=== PATIENT | female | born 1950 | race Asian ===

== ENCOUNTER 2018-06-12 09:24 | Inpatient (IN) | payer MEDICARE ==
[~2018-06-12] VITALS: Ht 162.6 cm; Wt 52.5 kg
[2018-06-12 10:30] VITALS: BP 95/65
[2018-06-12] MEDS ORDERED: ACETAMINOPHEN 325 MG TABLET PO PRN (11:15)
[2018-06-12] MEDS ORDERED: DOCUSATE SODIUM 283 MG/5 ML MINI-ENEMA PR PRN (11:15)
[2018-06-12 11:58] VITALS: BP 95/65
[2018-06-12 15:48] VITALS: BP 117/75
[2018-06-12 20:30] LABS: APPEARANCE,URINE CLEAR (CLEAR); BILIRUBIN,URINE NEGATIVE (NEGATIVE); GLUCOSE, URINE (UA) NEGATIVE (NEGATIVE); KETONES,URINE 15 mg/dL (NEGATIVE); LEUKOCYTE ESTERASE ,URINE SMALL (NEGATIVE); NITRATE,URINE NEGATIVE (NEGATIVE); OCCULT BLOOD,URINE NEGATIVE (NEGATIVE); PROTEIN,URINE TRACE (NEGATIVE); UROBILINOGEN,URINE 0.2 mg/dL (<=1.0)
[2018-06-12] MEDS: SENNA 187 MG TABLET PO SCH (20:40)
[2018-06-12] MEDS: DOCUSATE SODIUM 100 MG CAPSULE PO SCH (20:40)
[2018-06-12 20:41] LABS: BACTERIA,URINE Few /HPF (None Seen)
[2018-06-12 20:42] LABS: SQUAMOUS EPITHELIAL CELL,UR Few /LPF (None Seen)
[2018-06-12 20:44] LABS: HYALINE CASTS, URINE 0-2 /LPF (None Seen); MUCUS,URINE Moderate LPF (None Seen)
[2018-06-13 03:55] VITALS: BP 108/71
[2018-06-13 06:27] LABS: BASOPHILS % (AUTO) 0.7 % (0.0-2.0); EOSINOPHILS % (AUTO) 0.8 % (1.0-6.0); HEMATOCRIT 37.8 % (36-46); HEMOGLOBIN 12.9 g/dL (12.0-16.0); LYMPHOCYTES # (AUTO) 1.1 K/uL (1.0-4.8); LYMPHOCYTES % (AUTO) 16.5 % (22.0-44.0); MEAN CORPUSCULAR HEMOGLOBIN 29.8 pg (26.0-34.0); MEAN CORPUSCULAR HGB CONC 34.1 G/dL (31.0-37.0); MEAN CORPUSCULAR VOLUME 88 fL (80-100); MONOCYTES # (AUTO) 0.8 K/uL (0.1-1.0); MONOCYTES % (AUTO) 12.4 % (2.0-9.0); NEUTROPHILS # (AUTO) 4.7 K/uL (1.8-7.7); NEUTROPHILS % (AUTO) 69.6 % (40.0-70.0); PLATELET COUNT (AUTO) 215 K/uL (150-450); RED BLOOD CELL COUNT(AUTO) 4.32 MIL/uL (4.00-5.20); RED CELL DISTRIBUTION WIDTH 13.5 % (11.5-14.5)
[2018-06-13 06:39] LABS: ANION GAP 7 mmol/L (8-16); CALCIUM, TOTAL 9.2 mg/dL (8.8-10.5); CARBON DIOXIDE 27 mmol/L (22-29); CHLORIDE 101 mmol/L (98-107); CREATININE 0.69 mg/dL (0.60-1.30); GLOMERULAR FILTR. RATE CALC > 60 mL/min (>60); GLUCOSE,RANDOM 126 mg/dL (70-110); POTASSIUM 3.8 mmol/L (3.5-5.1); SODIUM SERUM 135 mmol/L (136-145); UREA NITROGEN, BLOOD 21 mg/dL (7-18)
[2018-06-13 07:30] VITALS: BP 105/67
[2018-06-13] MEDS: ASPIRIN 81 MG CHEWABLE TABLET PO SCH ×2 (08:18→08:21)
[2018-06-13] MEDS: ASCORBIC ACID 500 MG TABLET PO SCH ×3 (08:18→20:41)
[2018-06-13] MEDS: DOCUSATE SODIUM 100 MG CAPSULE PO SCH ×3 (08:18→20:41)
[2018-06-13] MEDS: METOPROLOL TARTRATE 25 MG TABLET PO SCH ×2 (13:20→20:41)
[2018-06-13 15:51] VITALS: BP 100/71
[2018-06-13 17:34] LABS: GLUCOMETER DEV NAME(LOC) 2WR 2E; GLUCOSE,POINT OF CARE 99 MG/DL (70-110)
[2018-06-13 20:32] VITALS: BP 113/57
[2018-06-13] MEDS: SENNA 187 MG TABLET PO SCH (20:41)
[2018-06-14 05:30] VITALS: BP 93/57
[2018-06-14 06:04] LABS: GLUCOMETER DEV NAME(LOC) 2WR 1B; GLUCOSE,POINT OF CARE 103 MG/DL (70-110)
[2018-06-14 06:27] LABS: BASOPHILS % (AUTO) 0.8 % (0.0-2.0); EOSINOPHILS % (AUTO) 1.6 % (1.0-6.0); HEMATOCRIT 39.8 % (36-46); HEMOGLOBIN 13.6 g/dL (12.0-16.0); LYMPHOCYTES # (AUTO) 1.1 K/uL (1.0-4.8); LYMPHOCYTES % (AUTO) 21.3 % (22.0-44.0); MEAN CORPUSCULAR HEMOGLOBIN 29.8 pg (26.0-34.0); MEAN CORPUSCULAR HGB CONC 34.3 G/dL (31.0-37.0); MEAN CORPUSCULAR VOLUME 87 fL (80-100); MONOCYTES # (AUTO) 0.7 K/uL (0.1-1.0); MONOCYTES % (AUTO) 13.5 % (2.0-9.0); NEUTROPHILS # (AUTO) 3.2 K/uL (1.8-7.7); NEUTROPHILS % (AUTO) 62.8 % (40.0-70.0); PLATELET COUNT (AUTO) 213 K/uL (150-450); RED BLOOD CELL COUNT(AUTO) 4.58 MIL/uL (4.00-5.20); RED CELL DISTRIBUTION WIDTH 13.5 % (11.5-14.5)
[2018-06-14 07:50] VITALS: BP 103/69
[2018-06-14 08:18] LABS: ALANINE AMINOTRANSFERASE 29 U/L (12-78); ALKALINE PHOSPHATASE 63 U/L (46-116); ANION GAP 6 mmol/L (8-16); ASPARTATE AMINOTRANSFERASE 31 U/L (15-37); BILIRUBIN,TOTAL 0.7 mg/dL (0.1-1.0); CALCIUM, TOTAL 9.1 mg/dL (8.8-10.5); CARBON DIOXIDE 27 mmol/L (22-29); CHLORIDE 103 mmol/L (98-107); CREATININE 0.62 mg/dL (0.60-1.30); GLOMERULAR FILTR. RATE CALC > 60 mL/min (>60); GLUCOSE,RANDOM 108 mg/dL (70-110); POTASSIUM 3.9 mmol/L (3.5-5.1); SODIUM SERUM 136 mmol/L (136-145); THYROID STIMULATING HORMONE 1.36 uIU/mL (0.36-3.74); TOTAL PROTEIN, SERUM 7.5 g/dL (6.4-8.2); UREA NITROGEN, BLOOD 18 mg/dL (7-18)
[2018-06-14] MEDS: NATTOKINASE PO SCH (08:31)
[2018-06-14] MEDS: KRILL OIL 500 MG PO SCH (08:31)
[2018-06-14] MEDS: ASCORBIC ACID 500 MG TABLET PO SCH ×2 (08:32→20:50)
[2018-06-14] MEDS: DOCUSATE SODIUM 100 MG CAPSULE PO SCH ×2 (08:32→20:50)
[2018-06-14] MEDS: MAGNESIUM PO SCH (08:32)
[2018-06-14] MEDS: METOPROLOL TARTRATE 25 MG TABLET PO SCH (08:32)
[2018-06-14] MEDS: ASPIRIN 81 MG CHEWABLE TABLET PO SCH (08:33)
[2018-06-14] MEDS ORDERED: *PATIENT'S OWN MED [ENTER DRUG, DOSE, FREQUENCY IN COMMENTS] CLINICAL ONE ×3 (09:00)
[2018-06-14] MEDS: FAMOTIDINE 20 MG TABLET PO SCH (09:17)
[2018-06-14 16:09] VITALS: BP 111/59
[2018-06-14 17:18] LABS: GLUCOMETER DEV NAME(LOC) 2WR 1B; GLUCOSE,POINT OF CARE 135 MG/DL (70-110)
[2018-06-14] MEDS: SENNA 187 MG TABLET PO SCH (20:50)
[2018-06-14 20:55] VITALS: BP 112/71
[2018-06-15 04:24] VITALS: BP 125/71
[2018-06-15] MEDS ORDERED: KRIL1CAP19 PO (05:16)
[2018-06-15 07:00] VITALS: BP 96/61
[2018-06-15 07:04] LABS: BASOPHILS % (AUTO) 0.6 % (0.0-2.0); EOSINOPHILS % (AUTO) 1.6 % (1.0-6.0); HEMATOCRIT 34.1 % (36-46); HEMOGLOBIN 11.6 g/dL (12.0-16.0); LYMPHOCYTES # (AUTO) 0.8 K/uL (1.0-4.8); LYMPHOCYTES % (AUTO) 18.9 % (22.0-44.0); MEAN CORPUSCULAR HEMOGLOBIN 29.4 pg (26.0-34.0); MEAN CORPUSCULAR HGB CONC 34.2 G/dL (31.0-37.0); MEAN CORPUSCULAR VOLUME 86 fL (80-100); MONOCYTES # (AUTO) 0.6 K/uL (0.1-1.0); MONOCYTES % (AUTO) 12.9 % (2.0-9.0); NEUTROPHILS # (AUTO) 2.9 K/uL (1.8-7.7); PLATELET COUNT (AUTO) 208 K/uL (150-450); RED BLOOD CELL COUNT(AUTO) 3.96 MIL/uL (4.00-5.20); RED CELL DISTRIBUTION WIDTH 13.1 % (11.5-14.5)
[2018-06-15 07:40] LABS: ALANINE AMINOTRANSFERASE 23 U/L (12-78); ALBUMIN 2.7 g/dL (3.4-5.0); ALKALINE PHOSPHATASE 67 U/L (46-116); ANION GAP 7 mmol/L (8-16); ASPARTATE AMINOTRANSFERASE 25 U/L (15-37); BILIRUBIN,TOTAL 0.4 mg/dL (0.1-1.0); CALCIUM, TOTAL 8.5 mg/dL (8.8-10.5); CARBON DIOXIDE 27 mmol/L (22-29); CHLORIDE 104 mmol/L (98-107); CREATININE 0.49 mg/dL (0.60-1.30); GLOMERULAR FILTR. RATE CALC > 60 mL/min (>60); GLUCOSE,RANDOM 119 mg/dL (70-110); POTASSIUM 3.7 mmol/L (3.5-5.1); SODIUM SERUM 138 mmol/L (136-145); TOTAL PROTEIN, SERUM 6.5 g/dL (6.4-8.2); UREA NITROGEN, BLOOD 24 mg/dL (7-18)
[2018-06-15 07:54] LABS: GLUCOMETER DEV NAME(LOC) 2WR 2E; GLUCOSE,POINT OF CARE 111 MG/DL (70-110)
[2018-06-15] MEDS: METOPROLOL TARTRATE 25 MG TABLET PO SCH (09:00)
[2018-06-15] MEDS: FAMOTIDINE 20 MG TABLET PO SCH (10:41)
[2018-06-15] MEDS: MAGNESIUM PO SCH (10:41)
[2018-06-15] MEDS: NATTOKINASE PO SCH (10:42)
[2018-06-15] MEDS: KRILL OIL 500 MG PO SCH (10:42)
[2018-06-15] MEDS: DOCUSATE SODIUM 100 MG CAPSULE PO SCH ×2 (10:42→20:54)
[2018-06-15] MEDS: ASCORBIC ACID 500 MG TABLET PO SCH ×2 (10:42→20:53)
[2018-06-15] MEDS: ASPIRIN 81 MG CHEWABLE TABLET PO SCH (10:43)
[2018-06-15 15:00] VITALS: BP 101/65
[2018-06-15 17:58] LABS: GLUCOMETER DEV NAME(LOC) 2WR 2E; GLUCOSE,POINT OF CARE 115 MG/DL (70-110)
[2018-06-15] MEDS: SENNA 187 MG TABLET PO SCH (20:53)
[2018-06-16 03:30] VITALS: BP 103/64
[2018-06-16 06:19] LABS: GLUCOMETER DEV NAME(LOC) 2WR 2E; GLUCOSE,POINT OF CARE 110 MG/DL (70-110)
[2018-06-16 07:30] VITALS: BP 111/69
[2018-06-16] MEDS: KRILL OIL 500 MG PO SCH (08:30)
[2018-06-16] MEDS: NATTOKINASE PO SCH (08:30)
[2018-06-16] MEDS: MAGNESIUM PO SCH (08:30)
[2018-06-16] MEDS: DOCUSATE SODIUM 100 MG CAPSULE PO SCH ×2 (08:31→20:57)
[2018-06-16] MEDS: METOPROLOL TARTRATE 25 MG TABLET PO SCH (08:31)
[2018-06-16] MEDS: ASCORBIC ACID 500 MG TABLET PO SCH ×2 (08:31→21:01)
[2018-06-16] MEDS: ASPIRIN 81 MG CHEWABLE TABLET PO SCH (08:32)
[2018-06-16] MEDS: FAMOTIDINE 20 MG TABLET PO SCH (08:32)
[2018-06-16 17:54] LABS: GLUCOMETER DEV NAME(LOC) 2WR 1B; GLUCOSE,POINT OF CARE 129 MG/DL (70-110)
[2018-06-16 17:59] VITALS: BP 110/73
[2018-06-16] MEDS: SENNA 187 MG TABLET PO SCH (21:01)
[2018-06-17] MEDS ORDERED: METO25 PO (02:22)
[2018-06-17] MEDS ORDERED: FAMO20 PO (02:22)
[2018-06-17] MEDS ORDERED: ASPI81 PO (02:22)
[2018-06-17] MEDS ORDERED: NATTOKINASE PO (02:22)
[2018-06-17] MEDS ORDERED: ASCO500 PO (02:22)
[2018-06-17] MEDS ORDERED: CHELATED MAGNESIUM PO (02:22)
[2018-06-17] MEDS ORDERED: DSS100 PO (02:22)
[2018-06-17 05:00] VITALS: BP 118/72
[2018-06-17] MEDS ORDERED: ALENDRONATE SODIUM 70 MG TABLET PO SCH (06:30)
[2018-06-17 07:39] LABS: GLUCOMETER DEV NAME(LOC) 2WR 1B; GLUCOSE,POINT OF CARE 109 MG/DL (70-110)
== END 2018-06-17 06:20 | disposition home or self-care (01) | DRG 65 ==
LOC: 2WR 10:05
PROVIDERS: ADMIT Physical Medicine & Rehabilitation; ATTEND Physical Medicine & Rehabilitation
DX: I63.311 Cerebral infarction due to thrombosis of right middle cerebral artery (principal); G81.94 Hemiplegia, unspecified affecting left nondominant side; E87.1 Hypo-osmolality and hyponatremia; I48.91 Unspecified atrial fibrillation; R73.03 Prediabetes; M81.0 Age-related osteoporosis without current pathological fracture; R13.10 Dysphagia, unspecified; R47.1 Dysarthria and anarthria; Z88.2 Allergy status to sulfonamides; Z88.8 Allergy status to other drugs, medicaments and biological substances
CPT/HCPCS: 83735; 84443; 87081; 87086; 92507; 92508; 92523; 93005; 93970; 97110; 97112; 97116; 97150; 97162; 97167; 97530; 97535; 99366